=== PATIENT | female | born 1940 | race Caucasian/White ===

== ENCOUNTER 2021-08-19 11:45 | Inpatient (IN) | payer OTHER ==
[~2021-08-19] VITALS: Ht 152.4 cm; Wt 96.6 kg
[~2021-08-19 11:45] MED LIST: AMBIEN10 MG PO; Colace 100MG PO; PERCOCET 5/3251 TAB PO
[2021-08-21] MEDS ORDERED: ARICEPT10 MG PO (12:42)
[2021-08-21] MEDS ORDERED: SYNTHROID50 MCG PO (12:42)
[2021-08-21] MEDS ORDERED: LIPITOR20 MG PO (12:43)
[2021-08-21] MEDS ORDERED: AMLODIPINE-OLM1 EAC2 PO (12:43)
[2021-08-21] MEDS ORDERED: LASIX40 MG PO (12:43)
[2021-08-21] MEDS ORDERED: FOLIC ACID0.8 M1 PO (12:43)
[2021-08-21] MEDS ORDERED: GLIMEPIRIDE2 MG (12:43)
[2021-08-25] MEDS ORDERED: MEDROLPACK PO (09:48)
[2021-08-25] MEDS ORDERED: PERCOCET 5-3251 EACH PO (09:48)
[2021-08-25] MEDS ORDERED: DIAZEPAM5 MG PO (09:48)
[2021-08-25] MEDS ORDERED: COLACE100 MG PO (09:48)
== END 2021-08-26 13:29 | disposition home or self-care (01) | DRG 473 ==
LOC: O/R 08-25 05:15 → SURH 08-25 11:45
PROVIDERS: ADMIT Orthopaedic Surgery Orthopaedic Surgery of the Spine; ATTEND Orthopaedic Surgery Orthopaedic Surgery of the Spine
PROC: 07DS0ZZ Extraction of Vertebral Bone Marrow, Open Approach (ICD-10-PCS; 2021-08-25)
PROC: 0RG10A0 Fusion of Cervical Vertebral Joint with Interbody Fusion Device, Anterior Approach, Anterior Column, Open Approach (ICD-10-PCS; principal; 2021-08-25 13:45)
DX: M50.01 Cervical disc disorder with myelopathy, high cervical region (principal)